=== PATIENT | female | born 1990 | race Caucasian/White ===

== ENCOUNTER → 2023-06-12 | Outpatient (CLI) | payer MEDICARE, OTHER ==
[2023-06-12 15:31] LABS: Basophils # (A) 0.05 X 10*3/uL (0.00-0.10); Basophils % (A) 0.6 %; Eosinophils # (A) 0.04 X 10*3/uL (0.04-0.35); Eosinophils % (A) 0.4 %; HCT 41.5 % (37.2-46.3); HGB 13.4 d/dL (12.0-15.0); Lymphocytes # (A) 2.44 X 10*3/uL (0.90-5.00); MCH 29.3 pg (27.0-32.0); MCHC 32.3 d/dL (32.0-37.0); MCV 90.8 FL (80.0-97.0); Mean Platelet Volume 9.9 FL (9.5-12.2); Monocytes # (A) 0.52 X 10*3/uL (0.20-1.00); Monocytes % (A) 5.7 %; NRBC Per 100 WBC 0 X 10*3/uL (0.00-0.01); Neutrophils # (A) 5.98 X 10*3/uL (1.80-7.70); Neutrophils % (A) 66.1 %; Platelet Count 340 X 10*3/uL (140-440); RBC 4.57 X 10*6/uL (4.10-5.20); RDW 12.6 % (11.5-14.5); WBC 9.05 X 10*3/uL (4.50-10.00)
[2023-06-12 15:54] LABS: ALT 40 U/L (8-44); AST 23 U/L (13-35); Albumin 4.4 d/dL (3.8-4.9); Albumin/Globulin Ratio 1.52 Ratio (1.60-3.17); Alkaline Phosphatase 58 U/L (41-126); BUN/Creat Ratio 15.43 Ratio (12.00-20.00); Blood Urea Nitrogen 10.8 mg/dL (9.0-27.0); Calcium 9.6 mg/dL (8.7-10.3); Carbon Dioxide 26.2 mmol/L (21.6-31.8); Chloride 104 mmol/L (96-109); Globulin 2.9 d/dL (1.6-3.3); Glucose 95 mg/dL (70-110); Potassium 4.4 mmol/L (3.5-5.5); Sodium 140 mmol/L (135-145); Total Bilirubin 0.4 mg/dL (0.3-1.2); Total Protein 7.3 d/dL (6.2-8.2)
== END | disposition home or self-care (01) ==
LOC: LABWHC1 10:00
PROVIDERS: ATTEND Internal Medicine Gastroenterology
DX: B18.2 Chronic viral hepatitis C (principal)
CPT/HCPCS: 36415; 80053; 82105; 85025; 87522

== ENCOUNTER → 2023-06-12 | Outpatient (CLI) | payer MEDICARE, OTHER ==
--- NOTE | 2023-06-14 15:03 | US ---
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 FINDINGS: EXAM MEASUREMENTS: Liver Length: 17.7 cm Gallbladder Wall: 0.2 cm CBD: 0.4 cm Right Kidney: 10.5x4.6x4.8 cm [facility] NOTES: Pancreas: Tail obscured by overlying bowel gas Liver: enlarged, increased attenuation Gallbladder: wnl Evidence for sonographic Velázquez's sign: No CBD: wnl Right Kidney: wnl exam limited by bowel and large body habitus The visualized portions of the fingers unremarkable. The tail is obscured by overlying bowel gas. The liver is enlarged with slightly increased echogenicity. No focal lesion identified. No surface nodul arity. Gallbladder is within normal limits without evidence of cholelithiasis, wall thickening, or pe richolecystic fluid. Per log driver, negative sonographic Velázquez sign. Right kidney is unremarkable without evidence of hydronephrosis, nephrolithiasis, or solid mass. Corticomedullary differentiation is maintained. Common bile duct is within normal limits. IMPRESSION: Limited examination due to patient's body habitus and overlying bowel gas. Hepatomegaly with slightly increased liver echogenicity without focal lesion identified. No overt cir rhotic appearance.
== END | disposition home or self-care (01) ==
LOC: RADUSWWP 09:07
PROVIDERS: ATTEND Internal Medicine Gastroenterology
DX: B18.2 Chronic viral hepatitis C (principal); R16.0 Hepatomegaly, not elsewhere classified
CPT/HCPCS: 76705

== ENCOUNTER → 2023-10-24 | Outpatient (CLI) | payer MEDICARE, OTHER ==
[2023-10-25 02:16] LABS: Basophils # (A) 0.06 X 10*3/uL (0.00-0.10); Basophils % (A) 0.4 %; Eosinophils # (A) 0.09 X 10*3/uL (0.04-0.35); Eosinophils % (A) 0.7 %; HCT 41.3 % (37.2-46.3); HGB 13.5 g/dL (12.0-15.0); Lymphocytes # (A) 3.73 X 10*3/uL (0.90-5.00); Lymphocytes % (A) 27.5 %; MCH 29.4 pg (27.0-32.0); MCHC 32.7 g/dL (32.0-37.0); Mean Platelet Volume 9.9 FL (9.5-12.2); Monocytes # (A) 0.82 X 10*3/uL (0.20-1.00); NRBC Per 100 WBC 0 X 10*3/uL (0.00-0.01); Neutrophils # (A) 8.81 X 10*3/uL (1.80-7.70); Platelet Count 354 X 10*3/uL (140-440); RBC 4.59 X 10*6/uL (4.10-5.20); WBC 13.56 X 10*3/uL (4.50-10.00)
[2023-10-25 05:13] LABS: ALT 23 U/L (8-44); AST 42 U/L (13-35); Albumin 4.2 g/dL (3.8-4.9); Albumin/Globulin Ratio 1.45 Ratio (1.60-3.17); Alkaline Phosphatase 59 U/L (41-126); Blood Urea Nitrogen 11.2 mg/dL (9.0-27.0); Carbon Dioxide 26.4 mmol/L (21.6-31.8); Chloride 99 mmol/L (96-109); Globulin 2.9 g/dL (1.6-3.3); Glucose 95 mg/dL (70-110); Potassium 4.7 mmol/L (3.5-5.5); Sodium 137 mmol/L (135-145); Total Bilirubin <0.2 mg/dL (0.3-1.2); Total Protein 7.1 g/dL (6.2-8.2)
== END | disposition home or self-care (01) ==
LOC: LABWHC1 16:22
PROVIDERS: ATTEND Internal Medicine Gastroenterology
DX: B18.2 Chronic viral hepatitis C (principal)
CPT/HCPCS: 36415; 80053; 85025; 87522

== ENCOUNTER → 2024-04-08 | Outpatient (CLI) | payer MEDICARE, OTHER ==
[2024-04-08 15:17] LABS: Basophils # (A) 0.05 X 10*3/uL (0.00-0.10); Basophils % (A) 0.6 %; Eosinophils # (A) 0.08 X 10*3/uL (0.04-0.35); Eosinophils % (A) 0.9 %; HCT 40.4 % (37.2-46.3); HGB 13.5 g/dL (12.0-15.0); Lymphocytes % (A) 28.7 %; MCH 29.2 pg (27.0-32.0); MCHC 33.4 g/dL (32.0-37.0); MCV 87.3 FL (80.0-97.0); Mean Platelet Volume 9.5 FL (9.5-12.2); Monocytes # (A) 0.55 X 10*3/uL (0.20-1.00); Monocytes % (A) 6.1 %; NRBC Per 100 WBC 0 X 10*3/uL (0.00-0.01); Neutrophils # (A) 5.76 X 10*3/uL (1.80-7.70); Neutrophils % (A) 63.4 %; Platelet Count 356 X 10*3/uL (140-440); RBC 4.63 X 10*6/uL (4.10-5.20); RDW 12.8 % (11.5-14.5); WBC 9.07 X 10*3/uL (4.50-10.00)
[2024-04-08 15:38] LABS: ALT 19 U/L (8-44); AST 13 U/L (13-35); Albumin 4.5 g/dL (3.8-4.9); Alkaline Phosphatase 63 U/L (41-126); BUN/Creat Ratio 15.43 Ratio (12.00-20.00); Blood Urea Nitrogen 10.8 mg/dL (9.0-27.0); Calcium 9.4 mg/dL (8.7-10.3); Carbon Dioxide 25.4 mmol/L (21.6-31.8); Chloride 103 mmol/L (96-109); Globulin 2.5 g/dL (1.6-3.3); Glucose 101 mg/dL (70-110); Potassium 4.3 mmol/L (3.5-5.5); Sodium 139 mmol/L (135-145); Total Bilirubin 0.2 mg/dL (0.3-1.2)
[2024-04-09 13:14] LABS: Hepatits C Virus RNA Not detected (Not detected); Hepatits C Virus RNA, Quant <12 IU/mL (<12); LOG HCV IU/mL <1.08 (<1.08)
== END | disposition home or self-care (01) ==
LOC: LABWHC1 09:56
PROVIDERS: ATTEND Internal Medicine Gastroenterology
DX: B18.2 Chronic viral hepatitis C (principal)
CPT/HCPCS: 36415; 80053; 85025; 87522

== ENCOUNTER → 2025-03-24 | Outpatient (CLI) | payer MEDICARE, OTHER ==
[2025-03-24 17:59] LABS: Basophils # (A) 0.04 X 10*3/uL (0.00-0.10); Basophils % (A) 0.4 %; Eosinophils # (A) 0.06 X 10*3/uL (0.04-0.35); Eosinophils % (A) 0.6 %; HCT 41.8 % (37.2-46.3); Lymphocytes # (A) 2.92 X 10*3/uL (0.90-5.00); Lymphocytes % (A) 27.8 %; MCH 29.2 pg (27.0-32.0); MCHC 33.5 g/dL (32.0-37.0); MCV 87.3 FL (80.0-97.0); Mean Platelet Volume 9.8 FL (9.5-12.2); Monocytes # (A) 0.54 X 10*3/uL (0.20-1.00); Monocytes % (A) 5.1 %; NRBC Per 100 WBC 0 X 10*3/uL (0.00-0.01); Neutrophils # (A) 6.93 X 10*3/uL (1.80-7.70); Neutrophils % (A) 65.8 %; Platelet Count 350 X 10*3/uL (140-440); RBC 4.79 X 10*6/uL (4.10-5.20); RDW 12.6 % (11.5-14.5); WBC 10.52 X 10*3/uL (4.50-10.00)
[2025-03-24 18:12] LABS: ALT 18 U/L (8-44); AST 16 U/L (13-35); Albumin 4.5 g/dL (3.8-4.9); Albumin/Globulin Ratio 1.73 Ratio (1.60-3.17); Alkaline Phosphatase 73 U/L (41-126); BUN/Creat Ratio 17.75 Ratio (12.00-20.00); Blood Urea Nitrogen 14.2 mg/dL (9.0-27.0); Calcium 9.4 mg/dL (8.7-10.3); Carbon Dioxide 26.9 mmol/L (21.6-31.8); Chloride 103 mmol/L (96-109); Globulin 2.6 g/dL (1.6-3.3); Glucose 98 mg/dL (70-110); Potassium 4.2 mmol/L (3.5-5.5); Sodium 141 mmol/L (135-145); Total Bilirubin 0.2 mg/dL (0.3-1.2); Total Protein 7.1 g/dL (6.2-8.2)
== END | disposition home or self-care (01) ==
LOC: LABWHC1 14:41
PROVIDERS: ATTEND Nurse Practitioner Family
DX: B18.2 Chronic viral hepatitis C (principal)
CPT/HCPCS: 36415; 80053; 85025; 87522

== ENCOUNTER 2025-05-16 07:03 | Emergency (ER) | payer MEDICARE, OTHER ==
[2025-05-16 07:12] VITALS: BP 122/81; PULSE 86; RESP 16; TEMP 97.7
--- NOTE | 2025-05-16 07:36 | ED ---
Abdominal Pain HPI - General Chief Complaint: Abdominal Pain Stated Complaint: abd pain Time Seen by Provider: 05/16/25 07:20 Source: patient, RN notes reviewed Mode of arrival: wheelchair Limitations: no limitations - History of Present Illness Initial Comments: 36-year-old female with no reported past medical history presented to ER for evaluation of abdominal pain. Patient reports since last night she has been having severe cramping upper abdominal pain. She also was endorsing nausea and vomiting. Patient denies any hematemesis or coffee-ground emesis. Patient reports she feels chilled but denies known fevers. She has taken [id number] Tylenol without relief of her symptoms. Patient is unsure when her last bowel movement was and denies diarrhea. Patient denies prior abdominal surgeries or history of ulcerative colitis or Crohn's disease. Denies any hematuria, dysuria or increasing urinary frequency. Patient denies . Patient denies chest pain or shortness of breath. - Related Data Previous Rx's Medication Instructions Recorded Famotidine [Pepcid] 20 mg PO BID #28 tablet 05/16/25 Ondansetron Odt [Zofran Odt] 4 mg PO Q8HR PRN #10 tab 05/16/25 Allergies Allergy/AdvReac Type Severity Reaction Status Date / Time No Known Allergies Allergy Verified 05/16/25 07:12 Review of Systems ROS Statement: Those systems with pertinent positive or pertinent negative responses have been documented in the HPI. ROS Other: All systems not noted in ROS Statement are negative. Past Medical History Past Medical History: No Reported History History of Any Multi-Drug Resistant Organisms: None Reported Past Surgical History: No Surgical Hx Reported Past Psychological History: No Psychological Hx Reported Smoking Status: Vaper Past Alcohol Use History: None Reported Past Drug Use History: None Reported General Exam Limitations: no limitations General appearance: alert, in no apparent distress Respiratory exam: Present: normal lung sounds bilaterally. Absent: respiratory distress, wheezes, rales, rhonchi, stridor Cardiovascular Exam: Present: regular rate, normal rhythm, normal heart sounds. Absent: systolic murmur, diastolic murmur, rubs, gallop, clicks GI/Abdominal exam: Present: soft, tenderness (RUQ/epigastric), normal bowel so unds Extremities exam: Present: normal inspection, full ROM, normal capillary refill. Absent: tenderness, pedal edema, joint swelling, calf tenderness Neurological exam: Present: alert, oriented X3, CN II-XII intact Psychiatric exam: Present: anxious (pacing exam room) Skin exam: Present: warm, dry, intact, normal color. Absent: rash Course Vital Signs 05/16/25 07:08 Temperature 97.7 F Pulse Rate 86 Respiratory 16 Rate Blood Pressure 122/81 O2 Sat by Pulse 96 Oximetry Medical Decision Making - Medical Decision Making Was pt. sent in by a medical professional or institution (, PA, MAINTENANCE PIPEFITTER, urgent care, hospital, or shelter...) When possible be specific @ -No Did you speak to anyone other than the patient for history (EMS, parent, family, police, friend...)? What history was obtained from this source @ -No Did you review nursing and triage notes (agree or disagree)? Why? @ -I reviewed and agree with nursing and triage notes Were old charts reviewed (outside hosp., previous admission, EMS record, old EKG, old radiological studies, urgent care reports/EKG's, shelter records)? Report findings @ -No old charts were reviewed Differential Diagnosis (chest pain, altered mental status, abdominal pain women, abdominal pain men, vaginal bleeding, weakness, fever, dyspnea, syncope, headache, dizziness, GI bleed, back pain, seizure, CVA, palpatations, mental health, musculoskeletal)? @ -Differential Abdominal Pain Women: Appendicitis, Cholecystitis, diverticulosis, ischemic bowel, pancreatitis, hepatitis, UTI, gastroenteritis, AAA, incarcerated hernia, bowel obstruction, constipation, inflammatory bowel, hepatitis, peptic ulcer disease, splenic infarction, perforated viscus, vulvitis, ovarian torsion, PID, kidney stone, placenta abruption, this is not meant to be an all-inclusive list EKG interpreted by me (3pts min.). @ -None done X-rays interpreted by me (1pt min.). @ -None done CT interpreted by me (1pt min.). @ -CT abdomen pelvis negative for acute intra-abdominal process. Normal appendix. IUD in uterus. Normal gallbladder without distention, wall thickening or pericholecystic fluid. No gallstones or biliary ductal dilation. U/S interpreted by me (1pt. min.). @ -None done What testing was considered but not performed or refused? (CT, X-rays, U/S, labs)? Why? @ -None What meds were considered but not given or refused? Why? @ -None Did you discuss the management of the patient with other professionals (professionals i.e. , PA, MAINTENANCE PIPEFITTER, lab, RT, psych nurse, medical social worker, cognos report developer, teacher, driver's license reviewing officer, top case assembler)? Give summary @ -No Was smoking cessation discussed for >3mins.? @ -No Was critical care preformed (if so, how long)? @ -No Were there social determinants of health that impacted care today? How? ( Homelessness, low income, unemployed, alcoholism, drug addiction, transportation, low edu. Level, literacy, decrease access to med. care, skilled nursing, rehab)? @ -No Was there de-escalation of care discussed even if they declined (Discuss DNR or withdrawal of care, Hospice)? DNR status @ -No What co-morbidities impacted this encounter? (DM, HTN, Smoking, COPD, CAD, Cancer, CVA, ARF, Chemo, Hep., AIDS, mental health diagnosis, sleep apnea, morbid obesity)? @ -Obesity Was patient admitted / discharged? Hospital course, mention meds given and route, prescriptions, significant lab abnormalities, going to OR and other pertinent info. @ -Discharge. 35-year-old female presented to ER for evaluation of abdominal pain. Vital signs stable. Upon my evaluation patient in no signs of acute dis tress but is pacing exam room. Abdominal exam remarkable for right upper quadrant/epigastric abdominal tenderness to palpation. There are normal bowel sounds without rebound or guarding. Overlying skin unremarkable. Laboratory studies is remarkable for leukocytosis of 15.5 with left shift likely reactive from vomiting. Mild elevation in AST, 71, and ALT, 48. Total bilirubin 0.9. Urinalysis with trace protein also likely reactive. No evidence of infection. Urine hCG negative. CT abdomen pelvis performed showed no acute intra-abdominal process. Normal appendix. Patient provided with symptomatic Introl in the ER with IV fluids, Zofran, Toradol and Pepcid. Upon reevaluation patient does appear more comfortable and no signs of acute distress. Patient reported improvement of pain. Pain possibly due to constipation for which patient will be discharged with magnesium citrate. Zofran and Pepcid prescribed. I advised her to follow-up closely with PCP for further evaluation. Strict return parameters discussed. Patient verbally expressed understand agree with care plan. Case discussed with ED attending, Dr. Douglass. Undiagnosed new problem with uncertain prognosis? @ -No Drug Therapy requiring intensive monitoring for toxicity (Heparin, Nitro, Insulin, Cardizem)? @ -No Were any procedures done? @ -No Diagnosis/symptom? @ -Abdominal pain Acute, or Chronic, or Acute on Chronic? @ -Acute Uncomplicated (without systemic symptoms) or Complicated (systemic symptoms)? @ -Complicated Side effects of treatment? @ -No Exacerbation, Progression, or Severe Exacerbation? @ -No Poses a threat to life or bodily function? How? (Chest pain, [place], [place], pneumonia, PE, COPD, DKA, ARF, appy, cholecystitis, CVA, Diverticulitis, Homicidal, Suicidal, threat to staff... and all critical care pts) @ -No - Lab Data Result diagrams: 05/16/25 07:43 05/16/25 07:43 Lab Results 05/16/25 05/16/25 05/16/25 Range/Units 07:43 07:43 07:43 WBC 15.53 H (4.50-10.00) 10*3/uL RBC 4.48 (4.10-5.20) 10*6/uL Hgb 13.6 (12.0-15.0) g/dL Hct 39.3 (37.2-46.3) % MCV 87.7 (80.0-97.0) fL MCH 30.4 (27.0-32.0) pg MCHC 34.6 (32.0-37.0) g/dL Plt Count 320 (140-440) 10*3/uL MPV 9.5 (9.5-12.2) fL Immature Gran % (Auto) 0.4 % Neutrophils % 86.3 % Lymphocytes % 9.7 % Monocytes % 3.3 % Eosinophils % 0.1 % Basophils % 0.2 % Immature Gran # 0.06 H (0.00-0.04) 10*3/uL Neutrophils # 13.41 H (1.80-7.70) 10*3/uL Lymphocytes # 1.51 (0.90-5.00) 10*3/uL Monocytes # 0.51 (0.20-1.00) 10*3/uL Eosinophils # 0.01 L (0.04-0.35) 10*3/uL Basophils # 0.03 (0.00-0.10) 10*3/uL Sodium (137-145) mmol/L Potassium (3.5-5.1) mmol/L Chloride (98-107) mmol/L Carbon Dioxide (22-30) mmol/L Anion Gap mmol/L BUN (7-17) mg/dL Creatinine (0.52-1.04) mg/dL Est GFR (CKD-EPI)AfAm (>60 ml/min/1.73 sqM) Est GFR (CKD-EPI)NonAf (>60 ml/min/1.73 sqM) Glucose (74-99) mg/dL Plasma Lactic Acid [place] (0.7-2.0) mmol/L Calcium (8.4-10.2) mg/dL Total Bilirubin (0.2-1.3) mg/dL AST (14-36) U/L ALT (4-34) U/L Alkaline Phosphatase (38-126) U/L Total Protein (6.3-8.2) g/dL Albumin (3.5-5.0) g/dL Amylase (30-110) U/L Lipase (23-300) U/L Urine Color Yellow Urine Appearance Clear (Clear) Urine pH 8.5 H (5.0-8.0) Ur Specific [place] 1.030 (1.001-1.035) Urine Protein Trace H (Negative) Urine Glucose (UA) Negative (Negative) Urine Ketones Negative (Negative) Urine Blood Negative (Negative) Urine Nitrite Negative (Negative) Urine Bilirubin Negative (Negative) Urine Urobilinogen <2.0 (<2.0) mg/dL Ur Leukocyte Esterase Negative (Negative) Urine HCG, Qual Not Detected (Not Detectd) 05/16/25 05/16/25 Range/Units 07:43 07:43 WBC (4.50-10.00) 10*3/uL RBC (4.10-5.20) 10*6/uL Hgb (12.0-15.0) g/dL Hct (37.2-46.3) % MCV (80.0-97.0) fL MCH (27.0-32.0) pg MCHC (32.0-37.0) g/dL Plt Count (140-440) 10*3/uL MPV (9.5-12.2) fL Immature Gran % (Auto) % Neutrophils % % Lymphocytes % % Monocytes % % Eosinophils % % Basophils % % Immature Gran # (0.00-0.04) 10*3/uL Neutrophils # (1.80-7.70) 10*3/uL Lymphocytes # (0.90-5.00) 10*3/uL Monocytes # (0.20-1.00) 10*3/uL Eosinophils # (0.04-0.35) 10*3/uL Basophils # (0.00-0.10) 10*3/uL Sodium 142 (137-145) mmol/L Potassium 4.3 (3.5-5.1) mmol/L Chloride 105 (98-107) mmol/L Carbon Dioxide 26 (22-30) mmol/L Anion Gap 11 mmol/L BUN 14 (7-17) mg/dL Creatinine 0.67 (0.52-1.04) mg/dL Est GFR (CKD-EPI)AfAm >90 (>60 ml/min/1.73 sqM) Est GFR (CKD-EPI)NonAf >90 (>60 ml/min/1.73 sqM) Glucose 120 H (74-99) mg/dL Plasma Lactic Acid [place] 1.0 (0.7-2.0) mmol/L Calcium 9.4 (8.4-10.2) mg/dL Total Bilirubin 0.9 (0.2-1.3) mg/dL AST 71 H (14-36) U/L ALT 48 H (4-34) U/L Alkaline Phosphatase 80 (38-126) U/L Total Protein 7.4 (6.3-8.2) g/dL Albumin 4.8 (3.5-5.0) g/dL Amylase 50 (30-110) U/L Lipase 84 (23-300) U/L Urine Color Urine Appearance (Clear) Urine pH (5.0-8.0) Ur Specific [place] (1.001-1.035) Urine Protein (Negative) Urine Glucose (UA) (Negative) Urine Ketones (Negative) Urine Blood (Negative) Urine Nitrite (Negative) Urine Bilirubin (Negative) Urine Urobilinogen (<2.0) mg/dL Ur Leukocyte Esterase (Negative) Urine HCG, Qual (Not Detectd) - Radiology Data Radiology results: report reviewed, image reviewed Disposition Clinical Impression: Abdominal pain Disposition: HOME SELF-CARE Condition: Stable Instructions (If sedation given, give patient instructions): Abdominal Pain (ED) Additional Instructions: Follow-up with PCP. Return to ER for any new or worsening concerns Prescriptions: Famotidine [Pepcid] 20 mg PO BID #28 tablet Ondansetron Odt [Zofran Odt] 4 mg PO Q8HR PRN #10 tab PRN Reason: Nausea Is patient prescribed a controlled substance at d/c from ED?: No Referrals: Gallito Milan MD [Primary Care Provider] - 1-2 days Time of Disposition: 08:50
[2025-05-16] MEDS: SODIUM CHLORIDE 0.9% 1,000 ML IV ONE (07:48)
[2025-05-16] MEDS: FAMOTIDINE 20 MG/2 ML VIAL IV STA (07:49)
[2025-05-16] MEDS: ONDANSETRON 4 MG/2 ML VIAL IVP STA (07:49)
[2025-05-16 07:51] LABS: Bilirubin,Urine Negative (Negative); Blood,Urine Negative (Negative); Color,Urine Yellow; Glucose,Urine (UA) Negative (Negative); Ketones,Urine Negative (Negative); Leukocyte Esterase,Urine Negative (Negative); Nitrite,Urine Negative (Negative); PH, Urine 8.5 (5.0-8.0); Protein,Urine Trace (Negative); Specific Gravity,Urine 1.030 (1.001-1.035); Urobilinogen,Urine <2.0 mg/dL (<2.0)
[2025-05-16] MEDS: KETOROLAC 15 MG/ML 1 ML VIAL IVP STA (07:51)
[2025-05-16 07:53] LABS: Basophils # (A) 0.03 10*3/uL (0.00-0.10); Basophils % (A) 0.2 %; Eosinophils # (A) 0.01 10*3/uL (0.04-0.35); Eosinophils % (A) 0.1 %; HCT 39.3 % (37.2-46.3); HGB 13.6 g/dL (12.0-15.0); Lymphocytes # (A) 1.51 10*3/uL (0.90-5.00); Lymphocytes % (A) 9.7 %; MCH 30.4 pg (27.0-32.0); MCHC 34.6 g/dL (32.0-37.0); MCV 87.7 fL (80.0-97.0); Monocytes # (A) 0.51 10*3/uL (0.20-1.00); Monocytes % (A) 3.3 %; Neutrophils # (A) 13.41 10*3/uL (1.80-7.70); Neutrophils % (A) 86.3 %; Platelet Count 320 10*3/uL (140-440); RBC 4.48 10*6/uL (4.10-5.20); RDW 12.9 % (11.5-14.5); WBC 15.53 10*3/uL (4.50-10.00)
[2025-05-16 08:10] LABS: ALT 48 U/L (4-34); AST 71 U/L (14-36); African American GFR (CKD) >90 (>60 ml/min/1.73 sqM); Albumin 4.8 g/dL (3.5-5.0); Alkaline Phosphatase 80 U/L (38-126); Amylase 50 U/L (30-110); Anion Gap 11 mmol/L; Blood Urea Nitrogen 14 mg/dL (7-17); Calcium 9.4 mg/dL (8.4-10.2); Carbon Dioxide 26 mmol/L (22-30); Chloride 105 mmol/L (98-107); Glucose 120 mg/dL (74-99); Lipase 84 U/L (23-300); Non-African American GFR(CKD) >90 (>60 ml/min/1.73 sqM); Potassium 4.3 mmol/L (3.5-5.1); Sodium 142 mmol/L (137-145); Total Protein 7.4 g/dL (6.3-8.2)
--- NOTE | 2025-05-16 08:25 | CT ---
EXAMINATION TYPE: CT abdomen pelvis w con DATE OF EXAM: 05/16/2025 COMPARISON: None CLINICAL INDICATION: Female, 35 years old with history of upper abd pain; PHH, upper abdominal pain TECHNIQUE: Performed without Oral Contrast and with IV Contrast, patient injected with 100ml mL of Isovue 300. CT DLP: 2845.[address] CTDI: mGy Automated exposure control for dose reduction was used. FINDINGS: The lung bases are clear. The gallbladder is normal without distention, wall thickening, pericholecystic fluid or gallstones. T here is no biliary ductal dilatation. There is no focal mass or organomegaly involving the liver, pancreas, spleen or adrenal glands. There is no solid renal mass or hydronephrosis and there is homogeneous contrast enhancement of the r enal parenchyma. The caliber the abdominal aorta is normal is no retroperitoneal adenopathy or hemorr winston. The bowel loops are normal in caliber and there is no evidence of dilatation or obstruction. No infla mmatory changes are identified in the bowel wall or mesentery. The appendix is identified and is norm al. There is no free intraperitoneal air or fluid. No pelvic mass, free fluid, abscess or adenopathy. There is an IUD within the uterus. The osseous structures and soft tissues are intact. IMPRESSION: No significant abnormality seen. No acute changes within the abdomen or pelvis. [facility], , 05/16/2025 8:23 AM
[2025-05-16] MEDS: MAGNESIUM CITRATE 296 ML BOTTLE PO STA (09:24)
== END 2025-05-16 09:26 | disposition home or self-care (01) ==
LOC: EC 07:03
DX: R10.11 Right upper quadrant pain (principal); F17.290 Nicotine dependence, other tobacco product, uncomplicated
CPT/HCPCS: 36415; 80053; 82150; 83605; 83690; 85025; 81003; 81025; 74177; 99284; 96374; 96375 ×2; 96361 ×2; J2405; J1885; Q9967; J1308